=== PATIENT | female | born 1975 | race Caucasian/White ===

== ENCOUNTER 2018-02-01 08:18 | Emergency (ER) | payer BC ==
[2018-02-01 08:33] VITALS: BP 120/79
--- NOTE | 2018-02-01 10:23 | UC ---
UC General HPI - HPI Summary HPI Summary: "I think I have single". c/o burning itchy rash L side of trunk this am. - History of Current Complaint Chief Complaint: UCSkin Stated Complaint: SKIN COMPLAINT Time Seen by Provider: 02/01/18 10:21 Hx Obtained From: Patient Hx Last Menstrual Period: 01/26/18 Onset/Duration: Gradual Onset Timing: Constant Pain Intensity: 0 Alleviating: nothing Associated Signs & Symptoms: Negative: Fever - Allergy/Home Medications Allergies/Adverse Reactions: Allergies Allergy/AdvReac Type Severity Reaction Status Date / Time No Known Allergies Allergy Verified 02/01/18 08:30 PMH/Surg Hx/FS Hx/Imm Hx Psychological History: Anxiety - Surgical History Surgical History: None - Family History Known Family History: Positive: Non-Contributory - Social History Occupation: Employed Full-time Alcohol Use: Weekly Substance Use Type: None Smoking Status (MU): Current Every Day Smoker Type: Cigarettes Amount Used/How Often: 1/2 ppd - Immunization History Vaccination Up to Date: Yes Review of Systems All Other Systems Reviewed And Are Negative: Yes Constitutional: Positive: Negative Skin: Positive: Rash Eyes: Positive: Negative ENT: Positive: Negative Respiratory: Positive: Negative Cardiovascular: Positive: Negative Gastrointestinal: Positive: Negative Genitourinary: Positive: Negative Motor: Positive: Negative Neurovascular: Positive: Negative Musculoskeletal: Positive: Negative Neurological: Positive: Negative Psychological: Positive: Negative Physical Exam Triage Information Reviewed: Yes Appearance: Well-Appearing Vital Signs: Initial Vital Signs Temp 98 F 02/01/18 08:27 Pulse 78 02/01/18 08:27 Resp 15 02/01/18 08:27 BP 120/79 02/01/18 08:27 Pulse Ox 100 02/01/18 08:27 Vital Signs Reviewed: Yes Eyes: Positive: Conjunctiva Clear ENT: Positive: Normal ENT inspection Neck: Positive: Supple, Nontender, No Lymphadenopathy Respiratory: Positive: Lungs clear, Normal breath sounds Cardiovascular: Positive: RRR, No Murmur Abdomen Description: Positive: Nontender, No Organomegaly, Soft Bowel Sounds: Positive: Present Musculoskeletal: Positive: ROM Intact Neurological: Positive: Alert Psychological: Positive: Age Appropriate Behavior Skin Exam: Normal, Other - vesicular on pink base cluster L side of trunk in dermatomal pattern. Course/Dx - Course Course Of Treatment: need to avoid non immunized, and immune compromised people d/w pt. pt declined wok note. - Diagnoses Provider Diagnosis: Shingles Discharge - Sign-Out/Discharge Documenting (check all that apply): Patient Departure All imaging exams completed and their final reports reviewed: No Studies - Discharge Plan Condition: Stable Disposition: HOME Prescriptions: Famciclovir(NF) [Famvir(NF)] 500 mg PO TID 7 Days #21 tab Patient Education Materials: Cris (ED) Referrals: No Primary Care Phys,NOPCP [Primary Care Provider] - Additional Instructions: FOLLOW UP WITH YOUR PCP AT [facility] IN 7-10 DAYS OR SOONER IF WORSE. - Billing Disposition and Condition Condition: STABLE Disposition: Home
== END 2018-02-01 10:28 | disposition home or self-care (01) ==
LOC: UCCORT 08:18
DX: B02.9 Zoster without complications (principal); F17.210 Nicotine dependence, cigarettes, uncomplicated
CPT/HCPCS: 99202; G0463

== ENCOUNTER 2019-02-22 18:13 | Emergency (ER) | payer BC, OTHER ==
[2019-02-22 18:39] VITALS: BP 130/92
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
== END 2019-02-22 19:15 | disposition home or self-care (01) ==
LOC: UCCORT 18:13
DX: S06.0X0A Concussion without loss of consciousness, initial encounter (principal); R53.83 Other fatigue; R11.0 Nausea; F17.210 Nicotine dependence, cigarettes, uncomplicated; Y04.0XXA Assault by unarmed brawl or fight, initial encounter; Y92.9 Unspecified place or not applicable
CPT/HCPCS: 99211; G0463

== ENCOUNTER 2019-04-23 12:44 | Emergency (ER) | payer BC ==
[2019-04-23 14:10] VITALS: BP 119/77
[2019-04-23 14:18] LABS: Influenza A Molecular POSITIVE (Negative)
--- NOTE | 2019-04-23 15:07 | UC ---
Respiratory Complaint HPI - HPI Summary HPI Summary: 44 yo female with cough/fever/chills and runny nose x 4 hours - History of Current Complaint Chief Complaint: UCGeneralIllness Stated Complaint: HEADACHE BODYACHE COUGH Time Seen by Provider: 04/23/19 14:57 Hx Obtained From: Patient Hx Last Menstrual Period: First week of February Onset/Duration: Sudden Onset Timing: Constant Severity Initially: Mild Pain Intensity: 5 Pain Scale Used: 0-10 Numeric Character: Cough: Nonproductive Aggravating Factors: Allergens Alleviating Factors: Nothing Associated Signs And Symptoms: Positive: Nasal Congestion - Allergies/Home Medications Allergies/Adverse Reactions: Allergies Allergy/AdvReac Type Severity Reaction Status Date / Time No Known Allergies Allergy Verified 04/23/19 14:10 PMH/Surg Hx/FS Hx/Imm Hx Previously Healthy: Yes - Surgical History Surgical History: None - Family History Known Family History: Positive: Hypertension, Non-Contributory - Social History Alcohol Use: Weekly Substance Use Type: None Smoking Status (MU): Heavy Every Day Tobacco Smoker Type: Cigarettes Amount Used/How Often: 1/2 ppd - Immunization History Vaccination Up to Date: Yes Review of Systems All Other Systems Reviewed And Are Negative: Yes Constitutional: Positive: Fever, Chills, Fatigue Skin: Positive: Negative Eyes: Positive: Negative ENT: Positive: Nasal Discharge, Sinus Congestion Respiratory: Positive: Cough Cardiovascular: Positive: Negative Gastrointestinal: Positive: Negative Genitourinary: Positive: Negative Motor: Positive: Negative Neurovascular: Positive: Negative Musculoskeletal: Positive: Negative Neurological/Mental Status: Positive: Negative Psychological: Positive: Negative Physical Exam Triage Information Reviewed: Yes Appearance: Well-Appearing, No Pain Distress, Well-Nourished Vital Signs: Initial Vital Signs Temp 100.0 F 04/23/19 14:04 Pulse 95 04/23/19 14:04 Resp 18 04/23/19 14:04 BP 119/77 04/23/19 14:04 Pulse Ox 99 04/23/19 14:04 Vital Signs Reviewed: Yes Eyes: Positive: Conjunctiva Clear ENT: Positive: Hearing grossly normal, Pharynx normal, Nasal congestion, TMs normal, Uvula midline. Negative: Nasal drainage, Tonsillar swelling, Tonsillar exudate, Trismus, Hoarse voice, Dental tenderness, Sinus tenderness Dental Exam: Normal Neck: Positive: Supple, Nontender, No Lymphadenopathy Respiratory: Positive: Lungs clear, Normal breath sounds, No respiratory distress, No accessory muscle use Cardiovascular: Positive: RRR, No Murmur Musculoskeletal: Positive: ROM Intact, No Edema Neurological: Positive: Alert Psychological Exam: Normal Skin Exam: Normal Respiratory Course/Dx - Differential Dx/Diagnosis Provider Diagnosis: Influenza A Discharge ED - Sign-Out/Discharge Documenting (check all that apply): Patient Departure All imaging exams completed and their final reports reviewed: No Studies - Discharge Plan Condition: Stable Disposition: HOME Prescriptions: Oseltamivir CAP* [Tamiflu CAP*] 75 mg PO BID #10 cap Patient Education Materials: Influenza (ED) Referrals: Vesna Lisa MD [Primary Care Provider] - 5 Days (if not better) Additional Instructions: rest fluids tylenol or iburprofen - Billing Disposition and Condition Condition: STABLE Disposition: Home
== END 2019-04-23 15:26 | disposition home or self-care (01) ==
LOC: UCCORT 12:44
DX: J10.1 Influenza due to other identified influenza virus with other respiratory manifestations (principal); F17.210 Nicotine dependence, cigarettes, uncomplicated
CPT/HCPCS: 99212; G0463